=== PATIENT | male | born 1975 | race African-American/Black ===

== ENCOUNTER 2018-02-09 05:43 | Emergency (ER) | payer OTHER ==
--- NOTE | 2018-02-09 07:52 | ED ---
Psychiatric Complaint - HPI Summary HPI Summary: This is scribe Rashaun Garcia documenting for attending Jaylan Prado. A 42 y/o male BIBP presents to ED s/p heated argument with mitch-tori. As per triage, Patient brought to ED by [facility] under 941 status. Patient states he has had suicidal thoughts but denies any specific plan. Patient is going through a break up and has a child with this person". Upon entering the ED room, the patient asked the MD if he could call his daughter as he would like to know if she is alright. He stated that there is someone home with her, but he is still concerned. According to the patient, he had an argument with his ex-fikelsiee who he stills lives with. He noted that he has been going through a lot on top of pressure at work, where he had a "breakdown" in that moment. He stated that he felt overwhelmed emotionally and his ex-fikelsiee continued to mock him. He wanted to walk out and get some air/drive around to keep his mind off things and think. He called 911 because he "was in a dark place". 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 He has been feeling so burned out, overwhelmed and depressed. Pt denies any SI, but he stated that at the time I felt that it would have been better if "I wasn't here", but he continued on to state that he has a daughter who he cares for very much and "I would never do anything". Pt smoked a bit of marijuana and drank a bit of wine earlier. Patient takes adderall. SHx of position at [employer]. I, Dr. Prado, personally performed the services described in this documentation as scribed in my presence and it is both accurate and complete. - History Of Current Complaint Chief Complaint: [facility]MentalHealth Time Seen by Provider: 02/09/18 07:48 Hx Obtained From: Patient Onset/Duration: Sudden Onset, Lasting Hours Timing: Constant Aggravating Factor(s): Recent Stress Alleviating Factor(s): Nothing Associated Signs And Symptoms: Positive: Negative Has Suicidal: Denies: Thoughts, With A Plan Has Homicidal: Denies: Thoughts, With A Plan - Allergies/Home Medications Allergies/Adverse Reactions: Allergies Allergy/AdvReac Type Severity Reaction Status Date / Time Penicillins Allergy Unknown Verified 02/09/18 06:12 Reaction Details Home Medications: Home Medications Amphetamine MIXED SALT TAB* [Adderall TAB*] 20 mg PO DAILY 02/09/18 [History Confirmed 02/09/18] PMH/Surg Hx/FS Hx/Imm Hx Endocrine/Hematology History: Denies: Hx Diabetes Cardiovascular History: Denies: Hx Hypertension - Immunization History Date of Tetanus Vaccine: utd Date of Influenza Vaccine: none Infectious Disease History: No Infectious Disease History: Denies: Traveled Outside the [place] in Last 30 Days - Family History Known Family History: Positive: Hypertension, Other - POSITIVE: Manic, PTSD Negative: Diabetes - Social History Alcohol Use: Occasionally Substance Use Type: Reports: Marijuana - Ocassionally Substance Use Comment - Amount & Last Used: occasionally Smoking Status (MU): Current Some Day Smoker - Ocassionally Review of Systems Negative: Fever, Chills Negative: Erythema Negative: Sore Throat Negative: Chest Pain Negative: Shortness Of Breath, Cough Negative: Abdominal Pain, Vomiting, Nausea Negative: dysuria, hematuria Negative: Myalgia, Edema Negative: Rash Neurological: Other - NEGATIVE: Dizziness Psychological: Other - NEGATIVE: SI, HI Positive: Depressed All Other Systems Reviewed And Are Negative: Yes Physical Exam - Summary Physical Exam Summary: Constitutional: Well-developed, Well-nourished, Alert. (-) Distressed Skin: Warm, Dry HENT: Normocephalic; Atraumatic Eyes: Conjunctiva normal Neck: Musculoskeletal ROM normal neck. (-) JVD, (-) Stridor, (-) Tracheal deviation Cardio: Rhythm regular, rate normal, Heart sounds normal; Intact distal pulses; The pedal pulses are 2+ and symmetric. Radial pulses are 2+ and symmetric. (-) Murmur Pulmonary/Chest wall: Effort normal. (-) Respiratory distress, (-) Wheezes, (-) Rales Abd: Soft, (-) epigastric tenderness, (-) Distension, (-) Guarding, (-) Rebound Musculoskeletal: (-) Edema Lymph: (-) Cervical adenopathy Neuro: Alert, Oriented x3 Psych: Mood and affect Normal, no SI. Triage Information Reviewed: Yes Vital Signs On Initial Exam: Initial Vitals Temp Pulse Resp BP Pulse Ox 97.9 F 115 22 140/97 97 02/09/18 05:55 02/09/18 05:55 02/09/18 05:55 02/09/18 05:55 02/09/18 05:55 Vital Signs Reviewed: Yes Diagnostics - Vital Signs Vital Signs Temp Pulse Resp BP Pulse Ox 02/09/18 07:24 97.4 F 95 16 112/63 100 02/09/18 05:55 97.9 F 115 22 140/97 97 - Laboratory Result Diagrams: 02/09/18 08:03 02/09/18 08:03 Lab Statement: Any lab studies that have been ordered have been reviewed, and results considered in the medical decision making process. Course/Dx - Course Course Of Treatment: A 42 y/o male BIBP presents to ED s/p heated argument with ex-fiancee. No laboratory scans were done. In the ED course, the patient recieved no medications. Patient is to undergo a MHE. After MHE, patient care was discussed with Dr. Virgen who recommends discharging patient as outpatient. Patient will be discharged with a diagnosis of deppressive disorder. Patient is to follow up with [facility]. Patient is agreeable with this plan. - Differential Dx/Clinical Impression Provider Diagnosis: Depressive disorder - Physician Notifications Discussed Care Of Patient With: Mynor Virgen Time Discussed With Above Provider: 16:16 Instructed by Provider To: Other - Recommends discharging patient as outpatient. Discharge - Sign-Out/Discharge Documenting (check all that apply): Patient Departure - DISCHARGE - Discharge Plan Condition: Stable Disposition: HOME Patient Education Materials: Depression (ED), Help Prevent Suicide (ED), Anxiety (ED), Suicide Prevention (ED) Referrals: [facility]: Psych Services [Outside] Additional Instructions: FOLLOW UP WITH [facility]. RETURN TO ED FOR ANY NEW OR WORSENING SYMPTOMS.
[2018-02-09 08:21] LABS: Hematocrit 44 % (42-52); Hemoglobin 14.4 g/dl (14.0-18.0); Mean Corpuscular HGB Conc 33 g/dl (31-36); Mean Corpuscular Hemoglobin 24 pg (27-31); Mean Corpuscular Volume 72 fL (80-94); Mean Platelet Volume 9.1 um3 (7.4-10.4); Platelet Count 153 10^3/ul (150-450); Red Blood Count 6.09 10^6/ul (4.00-5.40); Red Cell Distribution Width 15 % (10.5-15); White Blood Count 5.7 10^3/ul (3.5-10.8)
[2018-02-09 08:34] LABS: EGFR Non-African American 93.5 (>60)
[2018-02-09 08:56] LABS: ABS Basophils 0 10^3/ul (0-0.2); ABS Eosinophils 0 10^3/ul (0-0.6); ABS Lymphocytes 2.3 10^3/ul (1.0-4.8); ABS Monocytes 0.7 10^3/ul (0-0.8); ABS Neutrophils 2.6 10^3/ul (1.5-7.7); ABS Nucleated RBC 0 10^3/ul; Eosinophil % 0.7 % (0-6); Lymphocyte % 40.7 % (25-47); Nucleated Red Blood Cells % 0.2
--- NOTE | 2018-02-09 15:55 | PN ---
ED Flex Patient Progress Note Date of Service: 02/08/18 Subjective: This is a 42 year-old M who is pending admission to [facility] / transfer to another psychiatric facility / discharge to home / or being observed secondary to SI. Pt. examined in F3 around 1520. He is sitting in chair in NAD. Very pleasant. Offers no complaints. Objective: Vitals: Most recent vital signs documented below. General NAD, Alert and oriented x3. Laboratory: Current laboratory results documented below. Assessment: Pending MHE Plan: Pending psychiatric or medical consultation to observe / transfer / admit / discharge will follow up daily . Vital Signs Temp Pulse Resp BP Pulse Ox 98.7 F 84 16 102/67 99 02/09/18 09:17 02/09/18 09:17 02/09/18 09:17 02/09/18 09:17 02/09/18 09:17 Lab Results - Entire Visit 02/09/18 02/09/18 08:03 08:03 WBC 5.7 RBC 6.09 H Hgb 14.4 Hct 44 MCV 72 L MCH 24 L MCHC 33 RDW 15 Plt Count 153 MPV 9.1 Neut % (Auto) 45.5 Lymph % (Auto) 40.7 Frederick % (Auto) 12.3 H Eos % (Auto) 0.7 Baso % (Auto) 0.8 Absolute Neuts (auto) 2.6 Absolute Lymphs (auto) 2.3 Absolute Monos (auto) 0.7 Absolute Eos (auto) 0 Absolute Basos (auto) 0 Absolute Nucleated RBC 0 Nucleated RBC % 0.2 Sodium 136 Potassium 4.3 Chloride 104 Carbon Dioxide 27 Anion Gap 5 BUN 11 Creatinine 0.90 Est GFR ( Amer) 113.1 Est GFR (Non-Af Amer) 93.5 BUN/Creatinine Ratio 12.2 Glucose 107 H Calcium 9.4 Total Bilirubin 0.50 AST 18 ALT 26 Alkaline Phosphatase 67 Total Protein 7.4 Albumin 4.1 Globulin 3.3 Albumin/Globulin Ratio 1.2 TSH 2.00 Salicylates < 2.50 Acetaminophen < 15 Serum Alcohol < 10
[2018-02-09 16:03] VITALS: BP 130/91
== END 2018-02-09 16:19 | disposition home or self-care (01) ==
LOC: ED 05:43
DX: F32.9 Major depressive disorder, single episode, unspecified (principal); Z88.0 Allergy status to penicillin; Z72.0 Tobacco use
CPT/HCPCS: 36415; 80053; 80320; 80329; 84443; 85025; 99283; G0480

== ENCOUNTER 2021-07-07 18:26 | Observation (INO) ==
[2021-07-07 18:58] LABS: Hematocrit 44 % (42-52); Hemoglobin 14.2 g/dL (14.0-18.0); Mean Corpuscular HGB Conc 32 g/dL (31-36); Mean Corpuscular Hemoglobin 24 pg (27-31); Mean Corpuscular Volume 73 fL (80-94); Mean Platelet Volume 8.7 fL (7.4-10.4); Platelet Count 151 10^3/uL (150-450); Red Blood Count 6.01 10^6 /uL (4.18-5.48); Red Cell Distribution Width 15 % (10-15); White Blood Count 5.8 10^3/uL (3.5-10.8)
[2021-07-07 19:02] LABS: INR 1.13 (0.86-1.15)
[2021-07-07 19:32] LABS: Albumin 4.3 g/dL (3.2-5.2); Albumin/Globulin Ratio 1.4 (1-3); Calcium 9.1 mg/dL (8.6-10.3); Globulin 3.1 g/dL (2-4); Total Bilirubin 0.4 mg/dL (0.2-1.0); Total Protein 7.4 g/dL (6.4-8.9); eGFR CKD-EPI 79.7 (>60)
[2021-07-07 19:33] LABS: ABS Eosinophils 0.2 10^3/ul (0-0.6); ABS Lymphocytes 2.5 10^3/ul (1.0-4.8); ABS Monocytes 0.6 10^3/ul (0-0.8); ABS Neutrophils 2.5 10^3/ul (1.5-7.7); Eosinophil % 2.6 %; Nucleated Red Blood Cells % 0.3
[2021-07-07] MEDS ORDERED: Iohexol 350 (CONTRAST) 500 ML MDV IV ONE (22:04)
[2021-07-07 23:12] LABS: C Reactive Protein 3.85 mg/L (<8.01)
[2021-07-08] MEDS ORDERED: Aspirin EC 81 mg TAB.EC (enteric coated) PO SCH (09:00)
[2021-07-08 10:14] VITALS: BP 142/76
[2021-07-08 10:34] LABS: ABS Eosinophils 0.2 10^3/ul (0-0.6); ABS Lymphocytes 1.9 10^3/ul (1.0-4.8); ABS Monocytes 0.4 10^3/ul (0-0.8); ABS Neutrophils 1.8 10^3/ul (1.5-7.7); Eosinophil % 4.9 %; Hematocrit 45 % (42-52); Hemoglobin 14.6 g/dL (14.0-18.0); Lymphocyte % 43.9 %; Mean Corpuscular HGB Conc 33 g/dL (31-36); Mean Corpuscular Hemoglobin 24 pg (27-31); Mean Corpuscular Volume 73 fL (80-94); Mean Platelet Volume 8.8 fL (7.4-10.4); Platelet Count 149 10^3/uL (150-450); Red Blood Count 6.13 10^6 /uL (4.18-5.48); Red Cell Distribution Width 15 % (10-15); White Blood Count 4.4 10^3/uL (3.5-10.8)
[2021-07-08 10:39] LABS: Calcium 9.2 mg/dL (8.6-10.3); HDL Cholesterol 42.1 mg/dL; eGFR CKD-EPI 105.2 (>60)
[2021-07-08 15:13] LABS: Ferritin 66.8 ng/mL (24-336)
[2021-07-10 12:20] LABS: % Iron Saturation 30 % (14 - 50); Total Iron Binding Capacity 282 mcg/dL (250 - 400); Transferrin 239 mg/dL (200 - 360)
== END 2021-07-08 15:56 | disposition home or self-care (01) ==
LOC: ED 18:26 → EDHOLD 18:26 → MEDTELE 07-08 07:20
PROVIDERS: ADMIT Internal Medicine; ATTEND Internal Medicine